=== PATIENT | male | born 1950 | race American Indian/Alaskan Native ===

== ENCOUNTER 2016-11-03 09:32 | Outpatient (CLI) | payer MEDICARE, OTHER ==
[2016-11-03 10:14] LABS: Blood Urea Nitrogen 18 mg/dL (9-20)
--- NOTE | 2016-11-04 11:59 | Cat Scan Report ---
CT UPPER EXTREMITY LEFT WITH CONTRAST History: Left arm swelling, venous insufficiency. Technique: Helical CT following IV contrast. Sagittal and coronal reformatted images. Rotational MIP images. Findings: There is no comparison. The bony and muscular structures of the left upper extremity are within normal limits. There is no evidence for fracture or bone lesion. No soft tissue mass or inflammation is identified. The left axillary, brachial, radial and ulnar arteries are widely patent with less than 20% stenosis. Delayed imaging of the upper extremity was also obtained to evaluate the venous structures. The cephalic vein is dilated but widely patent. The distal basilic vein is dilated and patent. There appears to be occlusion of the proximal basilic vein near the left axilla. The remaining venous structures are poorly opacified on this exam. Impression: No soft tissue or bony abnormality. No masses are visualized. The arterial structures appear widely patent. Occlusion or near occlusion of the basilic vein near the left axilla.
== END 2016-11-03 09:33 | disposition home or self-care (01) ==
LOC: CT 09:32
PROVIDERS: ATTEND Radiology Diagnostic Radiology
DX: I65.23 Occlusion and stenosis of bilateral carotid arteries (principal); I87.2 Venous insufficiency (chronic) (peripheral); I86.8 Varicose veins of other specified sites
CPT/HCPCS: 36415; 73201; 82565; 84520; Q9967